=== PATIENT | female | born 1965 | race Caucasian/White ===

== ENCOUNTER 2021-01-07 20:42 | Emergency (ER) | payer MEDICAID, OTHER ==
[2015-10-19 08:55] VITALS: BP 126/86
[~2021-01-07 20:42] MED LIST: LEVO100T5 PO; METF500T16 PO; METH-562 PO; POTA99TA10 PO
== END 2021-01-07 21:34 | disposition left against medical advice (07) ==
LOC: ER 20:42
DX: M25.511 Pain in right shoulder (principal); Z53.21 Procedure and treatment not carried out due to patient leaving prior to being seen by health care provider